=== PATIENT | male | born 1965 | race Caucasian/White ===

== ENCOUNTER 2017-01-20 13:49 | Emergency (ER) | payer SELFPAY ==
[~2017-01-20] VITALS: Ht 182.9 cm; Wt 67.4 kg
[2017-01-20 13:53] VITALS: BP 129/76; PULSE 71; RESP 16; TEMP 97.7; O2SAT 100
--- NOTE | 2017-01-20 14:38 | PD ---
HPI Chief Complaint: Injury Time Seen by Provider: 14:09 Travel History International Travel<30 days: No Contact w/Intl Traveler<30days: [place] Traveled to: [facility] Traveled to known affect area: No History of Present Illness HPI 51-year-old male presents the emergency Department with right-sided thoracic wall pain and rib pain with history of 2 injuries to the area over the last 2 months. Patient states the first injury was due [place] with secondary injury from pulling on a rope on a boat in December. Patient continues to have sharp pain along the right middle lateral chest wall. He is concerned about possible rib fracture. Patient is a smoker. He denies fever, chills, or significant shortness of breath. Pain is worse with certain movements and cough as well as deep breath. He denies any other injury. Pain is typically 6 out of 10 but worse with certain movements. He has no known drug allergies. PFSH Past Medical History Medical History: Denies Significant Hx Influenza Vaccination: No Social History Alcohol Use: No Tobacco Use: Yes (1/2 PPD) Substance Use: No Allergies-Medications (Allergen,Severity, Reaction): Coded Allergies: No Known Allergies (Unverified , 01/20/17) Reported Meds & Prescriptions Reported Meds & Active Scripts Active Tramadol (Tramadol HCl) 50 Mg Tab 50 Mg PO Q6H PRN Flexeril (Cyclobenzaprine HCl) 10 Mg Tab 10 Mg PO TID Ibuprofen 800 Mg Tab 800 Mg PO Q8H PRN Review of Systems Except as stated in HPI: all other systems reviewed are Neg General / Constitutional: No: Fever Eyes: No: Visual changes HENT: No: Headaches Cardiovascular: Positive: Chest Pain or Discomfort (see history of present illness) Respiratory: Positive: Pleuritic Pain (see history present illness), No: Shortness of Breath Gastrointestinal: No: Abdominal Pain Genitourinary: No: Dysuria Musculoskeletal: No: Pain Skin: No Rash Neurologic: No: Weakness Psychiatric: No: Depression Endocrine: No: Polydipsia Hematologic/Lymphatic: No: Easy Bruising Physical Exam Narrative GENERAL: Patient is a thin gentleman in no obvious distress. SKIN: Warm and dry. Normal color. Normal turgor. No obvious signs of trauma. No bruising. No subcutaneous emphysema. No deformities noted on the chest wall. No rash. HEAD: Atraumatic. Normocephalic. EYES: Pupils equal and round. No scleral icterus. No injection or drainage. ENT: No nasal bleeding or discharge. Mucous membranes pink and moist. Pharynx is clear. Airway is patent. NECK: Trachea midline. No bony tenderness or step-off. Range of motion is full and supple. CARDIOVASCULAR: Regular rate and rhythm. RESPIRATORY: No accessory muscle use. Clear to auscultation. Breath sounds equal bilaterally. Patient is very specific point tenderness along the middle lateral right rib cage along the T6 7 region. It is just slightly posterior midline laterally. No palpable crepitus or deformity is noted in the rib per MUSCULOSKELETAL: Extremities without clubbing, cyanosis, or edema. No obvious deformities. NEUROLOGICAL: Awake and alert. No obvious cranial nerve deficits. Motor grossly within normal limits. Five out of 5 muscle strength in the arms and legs. Normal speech. PSYCHIATRIC: Appropriate mood and affect; insight and judgment normal. Data Data Last Documented VS Vital Signs Date Time Temp Pulse Resp B/P (MAP) Pulse Ox O2 Delivery O2 Flow Rate FiO2 01/20/17 13:53 97.7 71 16 129/76 (93) 100 Orders Orders Ribs, Uni (W/Exp Cxr-Min 3vw) (01/20/17 14:12) [facility] Medical Decision Making Medical Screen Exam Complete: Yes Emergency Medical Condition: Yes Differential Diagnosis Chest wall strain. Rib pain. Rib fracture. Muscle spasm. Narrative Course Rib films are ordered of the right chest. X-rays show no acute fracture per radiologist. Patient is given ibuprofen 800 mg 3 times daily with food #60. Patient is given Flexeril 10 mg up to 3 times a day #15. Patient is given tramadol 50 mg one every 6 hours when necessary pain #20. Patient is recommended to use heat and ice and gentle stretching and follow up if symptoms do not continue to improve. Diagnosis Primary Impression: Strain of muscle and tendon of unspecified wall of thorax, initial encounter Additional Impression: Contusion of rib on right side Qualified Codes: S20.211A - Contusion of right front wall of thorax, initial encounter Referrals: [facility] Patient Instructions: General Instructions, Rib Contusion (ED) Additional Instructions: X-rays show no acute fracture per radiologist. Patient is given ibuprofen 800 mg 3 times daily with food #60. Patient is given Flexeril 10 mg up to 3 times a day #15. Patient is given tramadol 50 mg one every 6 hours when necessary pain #20. Patient is recommended to use heat and ice and gentle stretching and follow up if symptoms do not continue to improve. Med/Other Pt SpecificInfo: Prescription(s) given Scripts Tramadol (Tramadol) 50 Mg Tab 50 MG PO Q6H Y for PAIN, #20 TAB 0 Refills Prov: Martell Bell MD 01/20/17 Cyclobenzaprine (Flexeril) 10 Mg Tab 10 MG PO TID for Muscle Spasm, #15 TAB 0 Refills Prov: Martell Bell MD 01/20/17 Ibuprofen (Ibuprofen) 800 Mg Tab 800 MG PO Q8H Y for Pain/Inflammation, #60 TAB 0 Refills Prov: Martell Bell MD 01/20/17 Disposition: 01 DISCHARGE HOME Condition: Stable Steve Gallagher Jan 20, 2017 14:38
[2017-01-20] MEDS ORDERED: IBUP1TAB7 PO (14:39)
[2017-01-20] MEDS ORDERED: CYCL10TA PO (14:39)
[2017-01-20] MEDS ORDERED: TRAM50TA PO (14:39)
--- NOTE | 2017-01-20 14:57 | RADRPT ---
EXAM DATE/TIME: 01/20/2017 14:14 [place] COMPARISON: No previous studies available for comparison. INDICATIONS : Right rib pain post 2 falls the most recent approximately 2 weeks ago onto boat engine. MEDICAL HISTORY : None. SURGICAL HISTORY : None. ENCOUNTER: Initial ACUITY: 2 weeks PAIN SCORE: 4/10 LOCATION: Right ribs FINDINGS: 5 views of the chest and right ribs demonstrate no rib fracture or acute abnormality. There is no pne umothorax. Visualized bony structures demonstrate no acute finding. CONCLUSION: No rib fracture or acute abnormality is identified. Willis Simmons MD on January 20, 2017 at 14:53 Board Certified Radiologist. This report was verified electronically.
== END 2017-01-20 15:19 | disposition home or self-care (01) ==
LOC: PHEFT 13:49
DX: S20.211A Contusion of right front wall of thorax, initial encounter (principal); F17.210 Nicotine dependence, cigarettes, uncomplicated; X58.XXXA Exposure to other specified factors, initial encounter
CPT/HCPCS: 71101; 99284